=== PATIENT | female | born 1990 | race Hispanic/Latino ===

== ENCOUNTER 2024-07-11 11:13 | Emergency (ER) | payer SELFPAY ==
[~2024-07-11] VITALS: Ht 165.1 cm; Wt 72.6 kg
[~2024-07-11 11:13] MED LIST: PANT20TA18 PO
--- NOTE | 2024-07-11 11:18 | ERN ---
ED Note History of Present Illness Stated Complaint: N/V, HEADACHE, ABD PAIN Chief Complaint: Abdominal Pain Time Seen by MD: 11:14 Dictation: PATIENT IS A 33-YEAR-OLD FEMALE COMING IN TODAY WITH NAUSEA VOMITING DIARRHEA ONSET WAS SUNDAY. SHE STATES SHE HAS HAD ABDOMINAL CRAMPING INTERMITTENTLY SINCE SUNDAY. STATES SHE HAS NOT HAD ANY NAUSEA VOMITING TODAY JUST CRAMPING AND DIARRHEA. STATES HER WHO CAME TO VISIT HER WAS SICK THIS WEEK WITH THE SAME SYMPTOMS. NO PRIMARY CARE DOCTOR AND HAS TAKEN NOTHING TODAY PRIOR TO ARRIVAL FOR PAIN. SHE TOOK PEPTO-BISMOL YESTERDAY SAID IT DID NOT ADD ANY RELIEF. Allergies: Coded Allergies: No Known Allergies (Unverified Allergy, Unknown, 05/23/23) Home Meds Active Scripts Amoxicillin/Potassium Clav (Amox Tr-K Clv 875-125 mg Tab) 875 Mg-125 Mg Tablet, 1 EACH PO BID for 5 Days, #10 TAB 0 Refills Prov:LIZ SMITH NP 07/11/24 Dicyclomine HCl (Bentyl) 20 Mg Tab, 20 MG PO Q6D for Abdominal cramping, #30 TAB Prov:LIZ SMITH NP 07/11/24 Pantoprazole Sodium (Pantoprazole Sodium) 20 Mg Tablet.dr, 20 MG PO DAILY, #15 TAB Prov:CRISTINA BUI MD 05/23/23 Past Medical History Past Medical History: No Pertinent History Surgical History: Other Surgical History Other: LARGE INESTINE REPAIR PSYCH History: no pertinent psych hx Social History: Negative History: Not Applicable RN Note Reviewed/Agreed w/PFSH: Yes Review of System Dictation CONSTITUTIONAL: NEGATIVE EXCEPT FOR HPI HEAD/FACE: NEGATIVE EXCEPT FOR HPI EENT: NEGATIVE EXCEPT FOR HPI RESPIRATORY: NEGATIVE EXCEPT FOR HPI GASTROINTESTINAL/ABDOMINAL: NEGATIVE EXCEPT FOR HPI ABDOMINAL CRAMPING WITH NAUSEA VOMITING DIARRHEA GENITOURINARY: NEGATIVE EXCEPT FOR HPI MUSCULOSKELETAL: NEGATIVE EXCEPT FOR HPI INTEGUMENTARY: NEGATIVE EXCEPT FOR HPI NEUROLOGICAL/PSYCH: NEGATIVE EXCEPT FOR HPI HEMATOLOGIC/LYMPHATIC: NEGATIVE EXCEPT FOR HPI ALL SYSTEMS NEGATIVE, EXCEPT NOTED ABOVE. 13 POINT REVIEW OF SYSTEMS ASSESSED AND ALL NEGATIVE EXCEPT FOR ABOVE. Initial Vital Sign VS Vital Signs Date Time Temp Pulse Resp B/P (MAP) Pulse Ox O2 Delivery O2 Flow Rate FiO2 07/11/24 11:14 97.5 75 16 102/68 100 Room Air 0 07/11/24 11:47 21 Physical Exam Dictation VITAL SIGNS REVIEWED GENERAL APPEARANCE: ALERT, ORIENTED X 3, MILD ACUTE DISTRESS, WELL DEVELOPED, NOURISHED. HEAD AND FACE: NON-TRAUMATIC. EYES: PERRL, PINK CONJUNCTIVAS, EYELID NO TRAUMA, ANTERIOR CHAMBER WITH ARCUS SENILIS. EARS: PINNAS INTACT AND NO SIGNS OF TRAUMA OR ERYTHEMA EAR CANALS CLEAR AND NO DISCHARGE TM NO ERYTHEMA NOSE: NO DISCHARGE, NO BLEEDING. OROPHARYNX: MOUTH NORMAL, TONGUE PINK, PHARYNX CLEAR,NO ERYTHEMA, TONSILS NO EXUDATES, NO ABSCESSES NOTED, MUCOUS MEMBRANE MOIST NECK: SUPPLE, NON-TENDER, NO THYROMEGALY, NO MASSES, NO JVD, NO BRUITS BREAST:DEFERRED CHEST:NO TENDERNESS, NO CREPITUS, NO PARADOXICAL MOVEMENT, NO RETRACTIONS LUNGS:CLEAR, WELL-VENTILATED, SYMMETRIC, NO RALES, NO WHEEZING, NO RHONCHI, NO STRIDOR, GOOD BREATH SOUNDS BILATERALLY HEART: REGULAR RATE, REGULAR RHYTHM, NO MURMUR, NO GALLOPS VASCULAR: NO PERIPHERAL EDEMA, ABDOMEN: SOFT, POSITIVE BOWEL SOUND/HYPERACTIVE, NONDISTENDED, NO GUARDING, NONTENDER, NO REBOUND, NO MASSES NO HEPATOMEGALY, NO SPLENOMEGALY, NO JACOBO'S SIGN, NO HERNIAS. NO FOCAL TENDERNESS RECTAL: DEFERRED GENITAL: DEFERRED NEUROLOGICAL: NORMAL SPEECH, MOTOR FUNCTION INTACT, SENSORY FUNCTION INTACT MUSCULOSKELETAL: NECK NONTENDER, FULL RANGE OF MOTION, BACK NONTENDER, FULL RANGE OF MOTION, EXTREMITIES: NONTENDER, FULL RANGE OF MOTION SKIN: COLOR PINK, DRY, NO TURGOR, NO RASH, NO LACERATIONS, NO ABRASIONS, NO CONTUSIONS. LYMPHATIC: DEFERRED Results (Laboratory/Radiology) Laboratory/Radiology Laboratory Tests Test 07/11/24 11:23 07/11/24 11:52 White Blood Count 5.3 K/uL (4.8-10.8) Red Blood Count 3.68 MIL/uL (4.00-5.50) L Hemoglobin 12.5 g/dL (12.0-16.0) Hematocrit 35.8 % (36-48) L Mean Corpuscular Volume 97.3 fL (79-99) Mean Corpuscular Hemoglobin 34.0 pg (27.0-33.0) H Mean Corpuscular Hemoglobin Concent 34.9 g/dL (32.0-36.0) Red Cell Distribution Width 12.6 % (11.0-15.5) Platelet Count 312 K/uL (130-400) Mean Platelet Volume 10.8 fL (7.5-10.5) H Immature Granulocyte % (Auto) 0.2 % (0-1) Neutrophils (%) (Auto) 66.4 % (40.0-77.0) Lymphocytes (%) (Auto) 26.4 % (21.0-51.0) Monocytes (%) (Auto) 6.6 % (3.0-13.0) Eosinophils (%) (Auto) 0.2 % (0.0-8.0) Basophils (%) (Auto) 0.2 % (0.0-5.0) Neutrophils # (Auto) 3.5 K/uL (1.8-7.7) Lymphocytes # (Auto) 1.4 K/uL (1.0-4.8) Monocytes # (Auto) 0.4 K/uL (0.1-1.0) Eosinophils # (Auto) 0.01 K/uL (0.00-0.70) Basophils # (Auto) 0.01 K/uL (0.00-0.20) Absolute Immature Granulocyte (auto 0.01 K/uL (0-1) Nucleated Red Blood Cells 0.0 % (0.0-0.19) Sodium Level 143 mmol/L (136-145) Potassium Level 3.7 mmol/L (3.5-5.1) Chloride Level 106 mmol/L (101-111) Carbon Dioxide Level 30 mmol/L (21-32) Blood Urea Nitrogen 11 mg/dL (7-18) Creatinine 0.6 mg/dL (0.5-1.0) Glomerular Filtration Rate Calc 121 mL/min (>90) Random Glucose 88 mg/dL (70-105) Total Calcium 8.4 mg/dL (8.5-10.1) L Urine Color YELLOW (YELLOW) Urine Appearance CLEAR (CLEAR) Urine pH 6.0 (5.0-8.0) Urine Specific [place] 1.030 (1.001-1.031) Urine Protein 20 mg/dL (NEGATIVE) H Urine Glucose (UA) NEGATIVE mg/dL (NEGATIVE) Urine Ketones 20 mg/dL (NEGATIVE) H Urine Occult Blood SMALL (NEGATIVE) H Urine Nitrate NEGATIVE (NEGATIVE) Urine Bilirubin NEGATIVE mg/dL (NEGATIVE) Urine Urobilinogen 2.0 mg/dL (0.2-1.0) H Urine Leukocyte Esterase 250 Demetris/uL (NEGATIVE) H Urine RBC 11-25 /HPF (0-1) H Urine WBC 6-10 /HPF (0-1) H Urine Squamous Epithelial Cells MOD /HPF (0-2) Urine Bacteria None /HPF (None Seen) Urine HCG, Qualitative NEGATIVE (NEGATIVE) Labs Reviewed?: Yes ED Course ED Course Orders Procedure Category Date Status Time Cbc With Differential LAB 07/11/24 Complete 11: ,Urine Test LAB 07/11/24 Complete 11: Urinalysis Profile LAB 07/11/24 Complete 11: Basic Metabolic Panel LAB 07/11/24 Complete 11: Dicyclomine Hcl PHA 07/11/24 Complete (Bentyl 20mg Tab) 11:30 Culture Urine TED 07/11/24 In Process 12:26 Amox/Clav 875/125mg PHA 07/11/24 Complete Tab (Augmentin 875-1 13:00 Current Medications Medications (Trade) Dose Ordered Sig/Alee Route PRN Reason Start Time Stop Time Status Last Admin Dose Admin Amoxicillin/ Clavulanate Potassium (Augmentin 875-125 Tablet) 1 each ONCE ONCE PO 07/11/24 13:00 07/11/24 13:01 DC 07/11/24 12:59 Dicyclomine HCl (Bentyl 20mg Tab) 20 mg ONCE ONCE PO 07/11/24 11:30 07/11/24 11:31 DC 07/11/24 11:53 Vital Signs Date Time Temp Pulse Resp B/P (MAP) Pulse Ox O2 Delivery O2 Flow Rate FiO2 07/11/24 11:47 98.6 75 16 102/68 99 Room Air* 0 21 07/11/24 11:14 97.5 75 16 102/68 100 Room Air 0 1240 patient states she feels better after treatment with fluids we will be given antibiotics p.o. for UTI and discharged home with Bentyl Augmentin and follow up with her doctor with a list provided her. Medical Decision Making MDM Medical discharge making based on urinalysis and labs. Patient given normal saline and Bentyl. Discharged home with Augmentin and Bentyl for cramping and UTI. Given p.o. oral hydration instructions Given a list of primary care doctors for follow up DX & DISP Disposition: Discharge Departure Impression: Primary Impression: Viral gastroenteritis Additional Impressions: Abdominal cramping, UTI (urinary tract infection) Condition: Stable Scripts Amoxicillin/Potassium Clav (Amox Tr-K Clv 875-125 mg Tab) 875 Mg-125 Mg Tablet 1 EACH PO BID for 5 Days, #10 TAB 0 Refills Prov: LIZ SMITH NP 07/11/24 Dicyclomine HCl (Bentyl) 20 Mg Tab 20 MG PO Q6D for Abdominal cramping, #30 TAB Prov: LIZ SMITH NP 07/11/24 Additional Instructions: Follow-up with primary care provider in 1 to 2 days. Take medications as directed here in the emergency room. Okay to continue home medications unless otherwise discussed during your visit in the emergency room today. Return to your nearest emergency room if symptoms worsen or if there is no improvement. Call 911 if you need immediate assistance. Take Tylenol or Motrin [id number] as needed and if no contraindications are present. Increase oral hydration. A wound culture or urine culture was ordered here in the e mergency room department please follow-up with primary care provider and advise them to get repeat ports from our facility. If you had any Milo wrap/splints that were applied here, please do not remove them until you see your primary care or specialty. Follow a clear liquid diet for the next24 hours and then advance diet slowly to regular. Take antibiotics as directed until gone. Follow up with one of the doctors on the list provided you in the next 2-3 days Referrals: NONE (PCP) Time of Disposition: 12:44 ATTESTATION BY PHYSICIAN I PERFORMED THE SUBSTANTIVE PORTION OF THE VISIT. I HAVE REVIEWED AND PERSONALLY MADE AND APPROVED THE MANAGEMENT PLAN THAT IS DOCUMENTED IN THE NOTE BY MYSELF FOR THE A PP. I ACKNOWLEDGED FOR RESPONSIBILITY FOR THE PATIENT'S MANAGEMENT PLAN. I have reviewed the case, and I agree with, Diagnosis and Plan LIZ SIMTH NP Jul 11, 2024 11:18 AMEYA JOHNSON MD Jul 12, 2024 17:53
[2024-07-11 11:45] LABS: BASOPHILS # (AUTO) 0.01 K/uL (0.00-0.20); BASOPHILS % (AUTO) 0.2 % (0.0-5.0); EOSINOPHILS # (AUTO) 0.01 K/uL (0.00-0.70); EOSINOPHILS % (AUTO) 0.2 % (0.0-8.0); HEMATOCRIT 35.8 % (36-48); IMMATURE GRANULOCYTE ABSOLUTE 0.01 K/uL (0-1); LYMPHOCYTES # (AUTO) 1.4 K/uL (1.0-4.8); LYMPHOCYTES % (AUTO) 26.4 % (21.0-51.0); MEAN CORPUSCULAR HGB CONC 34.9 g/dL (32.0-36.0); MEAN CORPUSCULAR VOLUME 97.3 fL (79-99); MONOCYTES # (AUTO) 0.4 K/uL (0.1-1.0); MONOCYTES % (AUTO) 6.6 % (3.0-13.0); NEUTROPHILS # (AUTO) 3.5 K/uL (1.8-7.7); NEUTROPHILS % (AUTO) 66.4 % (40.0-77.0); PLATELET COUNT (AUTO) 312 K/uL (130-400); RED BLOOD CELL COUNT(AUTO) 3.68 MIL/uL (4.00-5.50); RED CELL DISTRIBUTION WIDTH 12.6 % (11.0-15.5); WHITE BLOOD COUNT (AUTO) 5.3 K/uL (4.8-10.8)
[2024-07-11 11:47] VITALS: BP 102/68; PULSE 75; RESP 16; TEMP 98.6; O2SAT 99
[2024-07-11] MEDS: DICYCLOMINE HCL 20 MG TAB PO ONE (11:53)
[2024-07-11 11:56] LABS: CREATININE 0.6 mg/dL (0.5-1.0); POTASSIUM 3.7 mmol/L (3.5-5.1)
[2024-07-11 12:05] LABS: APPEARANCE,URINE CLEAR (CLEAR); BILIRUBIN,URINE NEGATIVE (NEGATIVE); COLOR,URINE YELLOW (YELLOW); GLUCOSE, URINE (UA) NEGATIVE (NEGATIVE); KETONES,URINE 20 mg/dL (NEGATIVE); LEUKOCYTE ESTERASE ,URINE 250 Leu/uL (NEGATIVE); NITRATE,URINE NEGATIVE (NEGATIVE); OCCULT BLOOD,URINE SMALL (NEGATIVE); PROTEIN,URINE 20 mg/dL (NEGATIVE)
[2024-07-11 12:24] LABS: ADD UA MICROSCOPIC YES
[2024-07-11 12:32] LABS: HCG,QUALITATIVE URINE NEGATIVE (NEGATIVE)
[2024-07-11 12:35] LABS: MUCUS,URINE MANY LPF (None Seen); SQUAMOUS EPITHELIAL CELL,UR MOD /HPF (0-2)
[2024-07-11] MEDS ORDERED: AMOX1TAB16 PO (12:46)
[2024-07-11] MEDS ORDERED: DICY20TA2 PO (12:46)
[2024-07-11] MEDS: AMOX/CLAV 875/125MG TAB PO ONE (12:59)
--- NOTE | 2024-07-11 13:07 | NUR ---
DC PENDING REGISTRATION
== END 2024-07-11 13:14 | disposition home or self-care (01) ==
LOC: EDH 11:13
DX: A08.4 Viral intestinal infection, unspecified (principal); N39.0 Urinary tract infection, site not specified; Z79.899 Other long term (current) drug therapy; Z98.890 Other specified postprocedural states
CPT/HCPCS: 36415; 80048; 81001; 81025; 85025; 87086; 99283

== ENCOUNTER 2025-01-16 15:15 | Emergency (ER) | payer SELFPAY ==
[~2025-01-16] VITALS: Ht 152.4 cm; Wt 74.8 kg
[~2025-01-16 15:15] MED LIST changes: +AMOX1TAB16 PO; +DICY20TA2 PO
--- NOTE | 2025-01-16 15:47 | ERN ---
ED Note History of Present Illness Stated Complaint: VOMITTING BLOOD,FEVER,ABD PAIN Chief Complaint: Nausea,Vomiting,Diarrhea Time Seen by MD: 15:21 Dictation: PATIENT IS A 34-YEAR-OLD FEMALE COMING IN TODAY WITH COMPLAINTS OF EPIGASTRIC PAIN AND HAD BLOOD-TINGED EMESIS EARLIER TODAY. SHE HAS HAD NAUSEA VOMITING ALL DAY TODAY. STATES SHE HAS A HISTORY OF GASTRITIS. NO PRIMARY CARE DOCTOR, NO MEDICATIONS PRIOR TO ARRIVAL. Allergies: Coded Allergies: No Known Allergies (Unverified Allergy, Unknown, 05/23/23) Home Meds Active Scripts Nitrofurantoin/Nitrofuran Mac (Macrobid) 100 Mg Cap, 1 CAP PO BID for 7 Days, #14 CAP 0 Refills Prov:LIZ SMITH NP 01/16/25 Omeprazole (Omeprazole) 40 Mg Capsule.dr, 1 CAP PO DAILY for 30 Days, #30 CAP 0 Refills Prov:LIZ SMITH NP 01/16/25 Sucralfate (Carafate) 1 Gram Tablet, 1 GM PO ACHS for 10 Days, #40 TAB Prov:LIZ SMITH NP 01/16/25 Amoxicillin/Potassium Clav (Amox Tr-K Clv 875-125 mg Tab) 875 Mg-125 Mg Tablet, 1 EACH PO BID for 5 Days, #10 TAB 0 Refills Prov:LIZ SMITH NP 07/11/24 Dicyclomine HCl (Bentyl) 20 Mg Tab, 20 MG PO Q6D for Abdominal cramping, #30 TAB Prov:LIZ SMITH NP 07/11/24 Pantoprazole Sodium (Pantoprazole Sodium) 20 Mg Tablet.dr, 20 MG PO DAILY, #15 TAB Prov:CRISTINA BUI MD 05/23/23 Past Medical History Past Medical History: No Pertinent History Surgical History: Other Surgical History Other: RT OVARY REMOVAL, INTESTINAL REPAIR Social History: Negative History: Not Applicable LMP: Dec 18, 2024 RN Note Reviewed/Agreed w/PFSH: Yes Review of System Dictation CONSTITUTIONAL: NEGATIVE EXCEPT FOR HPI HEAD/FACE: NEGATIVE EXCEPT FOR HPI EENT: NEGATIVE EXCEPT FOR HPI RESPIRATORY: NEGATIVE EXCEPT FOR HPI GASTROINTESTINAL/ABDOMINAL: NEGATIVE EXCEPT FOR HPI EPIGASTRIC PAIN WITH BLOOD-TINGED EMESIS NAUSEA VOMITING GENITOURINARY: NEGATIVE EXCEPT FOR HPI MUSCULOSKELETAL: NEGATIVE EXCEPT FOR HPI INTEGUMENTARY: NEGATIVE EXCEPT FOR HPI NEUROLOGICAL/PSYCH: NEGATIVE EXCEPT FOR HPI HEMATOLOGIC/LYMPHATIC: NEGATIVE EXCEPT FOR HPI ALL SYSTEMS NEGATIVE, EXCEPT NOTED ABOVE. 13 POINT REVIEW OF SYSTEMS ASSESSED AND ALL NEGATIVE EXCEPT FOR ABOVE. Initial Vital Sign VS Vital Signs Date Time Temp Pulse Resp B/P (MAP) Pulse Ox O2 Delivery O2 Flow Rate FiO2 01/16/25 15:41 99.3 117 24 100 Room Air 01/16/25 16:33 112/55 0 21 Physical Exam Dictation VITAL SIGNS REVIEWED GENERAL APPEARANCE: ALERT, ORIENTED X 3, MODERATE ACUTE DISTRESS, WELL DEVELOPED, NOURISHED. HEAD AND FACE: NON-TRAUMATIC. EYES: PERRL, PINK CONJUNCTIVAS, EYELID NO TRAUMA, ANTERIOR CHAMBER WITH ARCUS SENILIS. EARS: PINNAS INTACT AND NO SIGNS OF TRAUMA OR ERYTHEMA EAR CANALS CLEAR AND NO DISCHARGE TM NO ERYTHEMA NOSE: NO DISCHARGE, NO BLEEDING. OROPHARYNX: MOUTH NORMAL, TONGUE PINK, PHARYNX CLEAR,NO ERYTHEMA, TONSILS NO EXUDATES, NO ABSCESSES NOTED, MUCOUS MEMBRANE MOIST NECK: SUPPLE, NON-TENDER, NO THYROMEGALY, NO MASSES, NO JVD, NO BRUITS BREAST:DEFERRED CHEST:NO TENDERNESS, NO CREPITUS, NO PARADOXICAL MOVEMENT, NO RETRACTIONS LUNGS:CLEAR, WELL-VENTILATED, SYMMETRIC, NO RALES, NO WHEEZING, NO RHONCHI, NO STRIDOR, GOOD BREATH SOUNDS BILATERALLY HEART: REGULAR RATE, REGULAR RHYTHM, NO MURMUR, NO GALLOPS VASCULAR: NO PERIPHERAL EDEMA, ABDOMEN: SOFT, POSITIVE BOWEL SOUNDS, NONDISTENDED, NO GUARDING, EPIGASTRIC TENDERNESS WITH PALPATION, NO REBOUND, NO MASSES NO HEPATOMEGALY, NO SPLENOMEGALY, NO JACOBO'S SIGN, NO HERNIAS. RECTAL: DEFERRED GENITAL: DEFERRED NEUROLOGICAL: NORMAL SPEECH, MOTOR FUNCTION INTACT, SENSORY FUNCTION INTACT MUSCULOSKELETAL: NECK NONTENDER, FULL RANGE OF MOTION, BACK NONTENDER, FULL RANGE OF MOTION, EXTREMITIES: NONTENDER, FULL RANGE OF MOTION SKIN: COLOR PINK, DRY, NO TURGOR, NO RASH, NO LACERATIONS, NO ABRASIONS, NO CONTUSIONS. LYMPHATIC: DEFERRED Results (Laboratory/Radiology) Laboratory/Radiology Laboratory Tests Test 01/16/25 15:55 01/16/25 16:16 01/16/25 17:09 Urine Color LIGHT-YELLOW (YELLOW) Urine Appearance CLEAR (CLEAR) Urine pH 6.0 (5.0-8.0) Urine Specific [place] 1.016 (1.001-1.031) Urine Protein NEGATIVE mg/dL (NEGATIVE) Urine Glucose (UA) NEGATIVE mg/dL (NEGATIVE) Urine Ketones NEGATIVE mg/dL (NEGATIVE) Urine Occult Blood NEGATIVE (NEGATIVE) Urine Nitrate NEGATIVE (NEGATIVE) Urine Bilirubin NEGATIVE mg/dL (NEGATIVE) Urine Urobilinogen 0.2 mg/dL (0.2-1.0) Urine Leukocyte Esterase 75 Demetris/uL (NEGATIVE) H Urine RBC 6-10 /HPF (0-1) H Urine WBC 2-5 /HPF (0-1) H Urine Squamous Epithelial Cells RARE /HPF (0-2) Urine Bacteria MOD /HPF (None Seen) Urine Hyaline Casts 0-1 /LPF (0-1 /LPF) Urine HCG, Qualitative NEGATIVE (NEGATIVE) White Blood Count 6.1 K/uL (4.8-10.8) Red Blood Count 3.62 MIL/uL (4.00-5.50) L Hemoglobin 12.3 g/dL (12.0-16.0) Hematocrit 35.3 % (36-48) L Mean Corpuscular Volume 97.5 fL (79-99) Mean Corpuscular Hemoglobin 34.0 pg (27.0-33.0) H Mean Corpuscular Hemoglobin Concent 34.8 g/dL (32.0-36.0) Red Cell Distribution Width 12.7 % (11.0-15.5) Platelet Count 243 K/uL (130-400) Mean Platelet Volume 10.8 fL (7.5-10.5) H Immature Granulocyte % (Auto) 0.5 % (0-1) Neutrophils (%) (Auto) 87.9 % (40.0-77.0) H Lymphocytes (%) (Auto) 4.4 % (21.0-51.0) L Monocytes (%) (Auto) 6.7 % (3.0-13.0) Eosinophils (%) (Auto) 0.3 % (0.0-8.0) Basophils (%) (Auto) 0.2 % (0.0-5.0) Neutrophils # (Auto) 5.4 K/uL (1.8-7.7) Lymphocytes # (Auto) 0.3 K/uL (1.0-4.8) L Monocytes # (Auto) 0.4 K/uL (0.1-1.0) Eosinophils # (Auto) 0.02 K/uL (0.00-0.70) Basophils # (Auto) 0.01 K/uL (0.00-0.20) Absolute Immature Granulocyte (auto 0.03 K/uL (0-1) Nucleated Red Blood Cells 0.0 % (0.0-0.19) White Cell Morphology Comment See comments Sodium Level 140 mmol/L (136-145) Potassium Level 3.4 mmol/L (3.5-5.1) L Chloride Level 103 mmol/L (101-111) Carbon Dioxide Level 25 mmol/L (21-32) Blood Urea Nitrogen 7 mg/dL (7-18) Creatinine 0.6 mg/dL (0.5-1.0) Glomerular Filtration Rate Calc 121 mL/min (>90) Random Glucose 121 mg/dL (70-105) H Total Calcium 8.7 mg/dL (8.5-10.1) Lipase 25 U/L (16-77) Influenza Type A Antigen Positive For Type A Influenza Type B Antigen Negative For Type B Labs Reviewed?: Yes ED Course ED Course Orders Procedure Category Date Status Time Cbc With Differential LAB 01/16/25 Complete 15:45 ,Urine Test LAB 01/16/25 Complete 15:45 Urinalysis Profile LAB 01/16/25 Complete 15:45 12 Lead Ekg Tracing- EKG 01/16/25 Logged Technical 15:45 0.9%Nacl 1000ml (Ns PHA 01/16/25 Complete 1000ml) 16:00 Ondansetron 4mg Inj PHA 01/16/25 Complete (Zofran 4mg Inj) 16:00 Famotidine 20mg Vial PHA 01/16/25 Complete (Pepcid 20mg Vial) 16:00 Lipase LAB 01/16/25 Complete 15:45 Basic Metabolic Panel LAB 01/16/25 Complete 15:45 Occult Blood Stool LAB 01/16/25 Logged Single Only 15:45 Culture Urine TED 01/16/25 In Process 16:14 Influenza Type A & B, LAB 01/16/25 Complete Rapid 16:57 Current Medications Medications (Trade) Dose Ordered Sig/Alee Route PRN Reason Start Time Stop Time Status Last Admin Dose Admin Famotidine (Pepcid 20mg Vial) 20 mg ONCE ONCE IV 01/16/25 16:00 01/16/25 16:01 DC 01/16/25 17:12 Ondansetron HCl (zoFRAN 4MG INJ) 4 mg ONCE ONCE IVP 01/16/25 16:00 01/16/25 16:01 DC 01/16/25 17:13 Sodium Chloride 1,000 ml @ 0 mls/hr ONCE ONCE IV 01/16/25 16:00 01/16/25 16:01 DC 01/16/25 17:13 Vital Signs Date Time Temp Pulse Resp B/P (MAP) Pulse Ox O2 Delivery O2 Flow Rate FiO2 01/16/25 16:33 99.1 99 17 112/55 97 Room Air* 0 21 01/16/25 15:41 99.3 117 24 100 Room Air 1732/patient states no pain at this time no nausea no vomiting. She will be discharged home with diagnosis of acute gastritis. She states she has been taken Pepcid complete [id number] and it does help but she also notices it gets worse the pain when she drinks coffee or ice tea. Patient was given instructions on a bland diet with water for fluids only and would foods to avoid She will be referred to Dr. Chaudhari 340/LAB CALLED AND PATIENT POSITIVE FOR INFLUENZA A WE WILL ADD TAMIFLU TO HER DISCHARGE MEDICATION Medical Decision Making MDM Medical decision-making based on basic labs for acute abdominal pain to include lipase. Labs essentially unremarkable Pain is relieved with Pepcid IV push No nausea no vomiting at this time. Patient will be discharged home with Carafate and omeprazole Given instructions on bland diet with water for fluids only She will be provided the name of Gastroenterology DX & DISP Disposition: Discharge Departure Impression: Primary Impression: Acute gastritis Additional Impressions: Hypokalemia, Hyperglycemia, Acute cystitis, Influenza A Condition: Stable Scripts Oseltamivir Phosphate (Tamiflu) 75 Mg Cap 75 MG PO BID for 5 Days, #10 CAP Prov: LIZ SMITH WEB PRODUCTION ASSISTANT 01/16/25 Nitrofurantoin/Nitrofuran Mac (Macrobid) 100 Mg Cap 1 CAP PO BID for 7 Days, #14 CAP 0 Refills Prov: LIZ SMITH WEB PRODUCTION ASSISTANT 01/16/25 Omeprazole (Omeprazole) 40 Mg Capsule. 1 CAP PO DAILY for 30 Days, #30 CAP 0 Refills Prov: LIZ SMITH WEB PRODUCTION ASSISTANT 5/23/25 Sucralfate (Carafate) 1 Gram Tablet 1 GM PO ACHS for 10 Days, #40 TAB Prov: LIZ SMITH WEB PRODUCTION ASSISTANT 01/16/25 Additional Instructions: Follow-up with primary care provider in 1 to 2 days. Take medications as directed here in the emergency room. Okay to continue home medications unless otherwise discussed during your visit in the emergency room today. Return to your nearest emergency room if symptoms worsen or if there is no improvement. Call 911 if you need immediate assistance. Take Tylenol or Motrin [id number] as needed and if no contraindications are present. Increase oral hydration. A wound culture or urine culture was ordered here in the emergency room department please follow-up with primary care provider and advise them to get repeat ports from our facility. If you had any Milo wrap/splints that were applied here, please do not remove them until you see your primary care or specialty. Take Carafate and omeprazole as directed. Increase your water intake. Take Macrodantin as instructed for urinary tract infection. Call furrier designer for an appointment in the next 1-2 days. Follow a bland diet with water for fluids only, no ice tea, no soda, no alcohol, no tobacco, no citrus fruit juice, coffee until cleared by your doctor Referrals: SELF,REFERRAL (PCP) FESTUS BECK MD I have reviewed the case, and I agree with, Diagnosis and Plan LIZ SMITH NP January 16, 2025 15:47
[2025-01-16 16:09] LABS: APPEARANCE,URINE CLEAR (CLEAR); BILIRUBIN,URINE NEGATIVE (NEGATIVE); COLOR,URINE LIGHT-YELLOW (YELLOW); GLUCOSE, URINE (UA) NEGATIVE (NEGATIVE); KETONES,URINE NEGATIVE (NEGATIVE); LEUKOCYTE ESTERASE ,URINE 75 Leu/uL (NEGATIVE); NITRATE,URINE NEGATIVE (NEGATIVE); OCCULT BLOOD,URINE NEGATIVE (NEGATIVE); PROTEIN,URINE NEGATIVE (NEGATIVE); UROBILINOGEN,URINE 0.2 mg/dL (0.2-1.0)
[2025-01-16 16:13] LABS: ADD UA MICROSCOPIC YES; HCG,QUALITATIVE URINE NEGATIVE (NEGATIVE)
[2025-01-16 16:16] LABS: BACTERIA,URINE MOD /HPF (None Seen); MUCUS,URINE FEW LPF (None Seen); SQUAMOUS EPITHELIAL CELL,UR RARE /HPF (0-2)
[2025-01-16 16:17] LABS: HYALINE CASTS, URINE 0-1 /LPF (0-1 /LPF)
[2025-01-16 16:23] LABS: BASOPHILS # (AUTO) 0.01 K/uL (0.00-0.20); BASOPHILS % (AUTO) 0.2 % (0.0-5.0); EOSINOPHILS # (AUTO) 0.02 K/uL (0.00-0.70); EOSINOPHILS % (AUTO) 0.3 % (0.0-8.0); HEMATOCRIT 35.3 % (36-48); IMMATURE GRANULOCYTE ABSOLUTE 0.03 K/uL (0-1); LYMPHOCYTES # (AUTO) 0.3 K/uL (1.0-4.8); LYMPHOCYTES % (AUTO) 4.4 % (21.0-51.0); MEAN CORPUSCULAR HGB CONC 34.8 g/dL (32.0-36.0); MEAN CORPUSCULAR VOLUME 97.5 fL (79-99); MONOCYTES # (AUTO) 0.4 K/uL (0.1-1.0); MONOCYTES % (AUTO) 6.7 % (3.0-13.0); NEUTROPHILS # (AUTO) 5.4 K/uL (1.8-7.7); NEUTROPHILS % (AUTO) 87.9 % (40.0-77.0); PLATELET COUNT (AUTO) 243 K/uL (130-400); RED BLOOD CELL COUNT(AUTO) 3.62 MIL/uL (4.00-5.50); RED CELL DISTRIBUTION WIDTH 12.7 % (11.0-15.5); WHITE BLOOD COUNT (AUTO) 6.1 K/uL (4.8-10.8)
[2025-01-16 16:40] LABS: CREATININE 0.6 mg/dL (0.5-1.0); POTASSIUM 3.4 mmol/L (3.5-5.1)
[2025-01-16] MEDS: FAMOTIDINE 20MG VIAL IV ONE (17:12)
[2025-01-16] MEDS: 0.9%NACL 1000ML 1,000 ML IV ONE (17:13)
[2025-01-16] MEDS: ondanSETRON 4MG INJ IVP ONE (17:13)
[2025-01-16] MEDS ORDERED: SUCR1TAB28 PO (17:39)
[2025-01-16] MEDS ORDERED: MACR100 PO (17:39)
[2025-01-16] MEDS ORDERED: OMEP40CA21 PO (17:39)
[2025-01-16 17:45] LABS: INFLUENZA TYPE B Negative For Type B (NEGATIVE)
[2025-01-16 17:48] LABS: INFLUENZA TYPE A Positive For Type A (NEGATIVE)
[2025-01-16 17:57] VITALS: BP 114/67; PULSE 94; RESP 18; TEMP 97.6; O2SAT 100
[2025-01-16] MEDS ORDERED: OSEL75 PO (17:57)
--- NOTE | 2025-01-16 18:39 | NUR ---
patient was dc'd by yury fernandes np i dc'd patients iv with cath still in place and applied 2x2 gauze with tape i explained to patient to follow up with pcp, take prescriptions as directed, and provided info regarding diagnosis, patient ambulated out of ed, no complications
--- NOTE | 2025-01-17 11:24 | EKG ---
[facility] Test Date: 2025-01-16 Test Time: 15:54:02 Pat Name: LIZZY MILAN Department: ED Room: Gender: F Manager Background: [id number] : 1990 Requested By: LIZ SMITH Order Number: [id number] Reading MD: Carolina Diaz Measurements Intervals [place] Rate: 101 P: 18 VT: 112 QRS: 35 QRSD: 89 T: -8 QT: 333 QTc: 431 Interpretive Statements Sinus tachycardia No previous ECG available for comparison Electronically Signed On 01-17-2025 14:29:33 CDT by Carolina Diaz Please click the below link to view image of tracing.
== END 2025-01-16 18:30 | disposition home or self-care (01) ==
LOC: EDH 15:15
DX: K29.00 Acute gastritis without bleeding (principal); E87.6 Hypokalemia; R73.9 Hyperglycemia, unspecified; N30.00 Acute cystitis without hematuria; J10.1 Influenza due to other identified influenza virus with other respiratory manifestations; Z79.899 Other long term (current) drug therapy; Z90.721 Acquired absence of ovaries, unilateral; Z20.822 Contact with and (suspected) exposure to COVID-19
CPT/HCPCS: 99284; 96374; 96361; 96375; 80048; 83690; 85025; 87086; 87804 ×2; 81001; 81025; 36415; 93005; J3490; J7030; J2405